=== PATIENT | male | born 1990 | race African-American/Black ===

== ENCOUNTER 2016-10-18 11:18 | Emergency (ER) | payer OTHER ==
--- NOTE | ~2016-10-18 | CR127 ---
[facility]. [facility] A Service of [facility] & [facility] RADIOLOGY TEXT RESULTS PATIENT: RAMIRO MEI LOCATION: SED : 88 UNIT #: [id number] AGE: [address]: ÓSCAR TIDWELL SEX: M ORDER DR: [id number] [place] [id number] E MR#: [id number] Acc #: [id number] NAME: RAMIRO MEI : 1990 SEX: M STUDY DATE/TIME: 10/18/2016 1320 UNIT: SED ROOM: STUDY DESCRIPTION: CR Foot Complete Min 3 View Rt Attending Physician: Óscar Tidwell Ordering Physician: Óscar Tidwell Primary Care Physician: No Primary Care Physician MEDICAL IMAGING REPORT This report is preliminary unless electronic signature is present. EXAM Right foot 3 views 10/18/2016 1320 hours HISTORY Patient complains of swelling on the dorsal lateral aspect of the foot since 10/15/2016. No reported injury. COMPARISON None. FINDINGS AP, lateral and oblique views demonstrate mild dorsal soft tissue swelling with no fracture, dislocation or periosteal reaction. No foreign body. IMPRESSION Mild soft tissue swelling with no fracture, dislocation, periosteal reaction or foreign body. Dictated by... Bela Stokes M.D. THIS IS AN ELECTRONICALLY VERIFIED REPORT Bela Stokes M.D. at 10/19/2016 9:30 AM Samir TD: 10/18/2016 18:35 JOB #: [id number] MEDICAL IMAGING REPORT Page 1 of 1
[2016-10-18] MEDS ORDERED: MOTRIN600 MG PO (14:05)
[2016-10-18] MEDS ORDERED: DOXYCYCLINE150 MG PO (14:05)
== END 2016-10-18 14:06 | disposition home or self-care (01) ==
LOC: SED 11:18
DX: L03.115 Cellulitis of right lower limb (principal); F17.210 Nicotine dependence, cigarettes, uncomplicated; Z79.899 Other long term (current) drug therapy
CPT/HCPCS: 73630; 99283